=== PATIENT | male | born 1955 | race Caucasian/White ===

== ENCOUNTER 2018-06-12 21:03 | Outpatient (REF) | payer MEDICARE, MEDICAID, SELFPAY ==
[2018-06-12 22:21] LABS: Anion Gap 9.6 mmol/L (3-11); BUN 15 mg/dL (7-18); CO2 29.4 mmol/L (21.0-32.0); CREATININE 1.04 mg/dL (0.70-1.30); Chloride 99 mmol/L (98-107); Glucose 131 mg/dL (70-100); Potassium 4.3 mmol/L (3.5-5.1); Sodium 138 mmol/L (136-145)
== END 2018-06-12 21:23 ==
LOC: NCHCN 21:03
PROVIDERS: Visit Provider Family Medicine
DX: I10 Essential (primary) hypertension (principal)
CPT/HCPCS: 80048

== ENCOUNTER 2018-11-03 09:56 | Outpatient (REF) | payer MEDICARE, MEDICAID, SELFPAY ==
[2018-11-04 06:09] LABS: Abs Immature Grans 0.01 k/cumm (0.0-0.09); Absolute Basophil Count 0.03 k/cumm (0.0-0.2); Absolute Lymphocyte Count 2.29 k/cumm (1.2-3.4); Absolute Monocyte Count 0.75 k/cumm (0.11-0.7); Absolute Neutrophil Count 3.52 k/cumm (1.2-6.7); Basophils % 0.4; HCT 42.1 % (40.0-50.0); HGB 14.4 g/dL (13.5-17.5); Immature Grans % 0.1; Lymphocytes % 32.3; Mean Corp. HGB Concentration 34.2 g/dL (32.0-36.0); Mean Corpuscular Hemoglobin 29.9 pg (27.0-33.0); Mean Corpuscular Volume 87.3 fL (80-95); Mean Platelet Volume 11.6 fL (8.0-11.0); Monocytes % 10.6; Neutrophils % 49.6; Platelet Count 253 x1000/uL (130-400); RBC 4.82 m/cumm (4.50-6.00); RBC Distribution Width 12.6 % (11.8-14.1)
[2018-11-04 09:40] LABS: ALT 28 U/L (12-78); AST 16 U/L (15-37); Albumin 3.9 g/dL (3.4-5.0); Alkaline Phosphatase 90 U/L (46-116); Anion Gap 8.9 mmol/L (3-11); BUN 21 mg/dL (7-18); Bilirubin, Total 0.2 mg/dL (0.2-1.0); CO2 29.1 mmol/L (21.0-32.0); CREATININE 0.91 mg/dL (0.70-1.30); Calcium 9.1 mg/dL (8.5-10.1); Chloride 105 mmol/L (98-107); Glucose 103 mg/dL (70-100); Potassium 4.2 mmol/L (3.5-5.1); Sodium 143 mmol/L (136-145); TSH (W/Ref FT4) 1.96 uIU/mL (0.358-3.74); Vitamin B12 265 pg/mL (193-986)
== END 2018-11-03 10:16 ==
LOC: NCHCN 09:56
PROVIDERS: Visit Provider Nurse Practitioner Family
DX: F41.8 Other specified anxiety disorders (principal); F51.04 Psychophysiologic insomnia; R45.851 Suicidal ideations
CPT/HCPCS: 80053; 82607; 84443; 85025

== ENCOUNTER 2019-12-06 15:55 | Outpatient (REF) | payer MEDICARE, MEDICAID, SELFPAY ==
[2019-12-06 20:52] LABS: HCT 43.9 % (40.0-50.0); HGB 15.2 g/dL (13.5-17.5)
[2019-12-06 21:16] LABS: ALT 28 U/L (16-63); AST 19 U/L (15-37); Alkaline Phosphatase 86 U/L (46-116); Anion Gap 11.4 mmol/L (3-11); BUN 11 mg/dL (7-18); Bilirubin, Total 0.5 mg/dL (0.2-1.0); CO2 26.6 mmol/L (21.0-32.0); Calcium 9.2 mg/dL (8.5-10.1); Chloride 102 mmol/L (98-107); Glucose 92 mg/dL (74-106); Potassium 4.2 mmol/L (3.5-5.1); Sodium 140 mmol/L (136-145); Total Protein 7.3 g/dL (6.4-8.2)
== END 2019-12-06 16:15 ==
LOC: NCHCN 15:55
PROVIDERS: Visit Provider Nurse Practitioner Community Health
DX: K21.9 Gastro-esophageal reflux disease without esophagitis (principal)
CPT/HCPCS: 80053; 85014; 85018

== ENCOUNTER 2020-04-13 22:22 | Outpatient (REF) | payer MEDICARE, MEDICAID, SELFPAY ==
[2020-04-17 03:58] LABS: Patient Race White; SARS-CoV-2 RNA Undetected (Undetected); SARS-CoV-2 Specimen Source Nasal
== END 2020-04-13 22:42 ==
LOC: NCHCN 22:22
PROVIDERS: Visit Provider Family Medicine
DX: Z11.59 Encounter for screening for other viral diseases (principal)
CPT/HCPCS: U0003

== ENCOUNTER 2020-04-19 17:11 | Outpatient (REF) | payer MEDICARE, MEDICAID, SELFPAY ==
[2020-04-19 22:31] LABS: Abs Immature Grans 0.03 10^3/uL (0.0-0.06); Absolute Basophil Count 0.06 10^3/uL (0.0-0.2); Absolute Eosinophil Count 0.39 10^3/uL (0.0-0.7); Absolute Lymphocyte Count 2.45 10^3/uL (1.2-3.4); Absolute Monocyte Count 0.93 10^3/uL (0.1-0.8); Absolute Neutrophil Count 6.09 10^3/uL (1.2-6.7); Basophils % 0.6; Eosinophils % 3.9; HCT 43.7 % (40.0-50.0); HGB 14.6 g/dL (13.5-17.5); Immature Grans % 0.3; Lymphocytes % 24.6; MCH 29.2 pg (27.0-33.0); MCHC 33.4 % (32.0-36.0); MCV 87.4 fL (80-95); MPV 11.6 fL (8.0-11.0); Monocytes % 9.3; Neutrophils % 61.3; Nucleated RBC 0 %; Platelet Count 279 10^3/uL (130-400); RDW 12.9 % (11.8-14.1); RDW-SD 41.1 fL; WBC 9.95 10^3/uL (4.4-10.8)
[2020-04-21 10:07] LABS: Hepatitis C Ab w Rflx HCV PCR Reactive (Negative)
[2020-04-21 10:15] LABS: HIV-1/2 Ag & Ab Screen Negative (Negative)
[2020-04-24 14:26] LABS: HCV RNA Qualitative Undetected (Undetected)
== END 2020-04-19 17:31 ==
LOC: NCHCN 17:11
PROVIDERS: Visit Provider Nurse Practitioner Community Health
DX: Z11.4 Encounter for screening for human immunodeficiency virus [HIV] (principal); Z11.59 Encounter for screening for other viral diseases; B37.81 Candidal esophagitis; R63.4 Abnormal weight loss
CPT/HCPCS: 86803; 87389; 87522; 85025

== ENCOUNTER 2022-09-03 16:50 | Outpatient (REF) | payer MEDICARE, MEDICAID, SELFPAY ==
[2022-09-04 18:58] LABS: PSA, Screening 0.4 ng/mL (<=4.5)
[2022-09-09 12:30] LABS: Testosterone, Total 269 ng/dL (240-950)
== END 2022-09-03 16:51 | disposition home or self-care (01) ==
LOC: LBN 16:50
DX: Z87.438 Personal history of other diseases of male genital organs (principal); R53.83 Other fatigue; Z12.5 Encounter for screening for malignant neoplasm of prostate
CPT/HCPCS: 84153; 84403

== ENCOUNTER 2023-02-05 10:37 | Outpatient (REF) | payer MEDICARE, MEDICAID, SELFPAY ==
[2023-02-05 14:45] LABS: Abs Immature Grans 0.02 10^3/uL (0.0-0.06); Absolute Basophil Count 0.07 10^3/uL (0.0-0.2); Absolute Eosinophil Count 0.46 10^3/uL (0.0-0.7); Absolute Monocyte Count 0.65 10^3/uL (0.1-0.8); Absolute Neutrophil Count 3.99 10^3/uL (1.2-6.7); Eosinophils % 6.7; HCT 39.7 % (40.0-50.0); HGB 13.4 g/dL (13.5-17.5); Immature Grans % 0.3; Lymphocytes % 24.7; MCHC 33.8 % (32.0-36.0); MCV 89 fL (80-95); MPV 9.9 fL (8.0-11.0); Monocytes % 9.4; Neutrophils % 57.9; Platelet Count 369 10^3/uL (130-400); RBC 4.46 10^6/uL (4.36-5.78); RDW-SD 39.4 fL; WBC 6.89 10^3/uL (4.4-10.8)
[2023-02-05 15:31] LABS: ALT 24 U/L (16-63); AST 20 U/L (15-37); Albumin 3.4 g/dL (3.4-5.0); Alkaline Phosphatase 77 U/L (46-116); Anion Gap 7.6 mmol/L (3-11); BUN 11 mg/dL (7-18); Bilirubin, Total 0.3 mg/dL (0.2-1.0); CO2 28.4 mmol/L (21.0-32.0); CREATININE 0.9 mg/dL (0.70-1.30); Calcium 8.8 mg/dL (8.5-10.1); Chloride 106 mmol/L (98-107); Estimated GFR 93.03 (mL/min/1.73m2); Glucose 101 mg/dL (74-106); Sodium 142 mmol/L (136-145)
== END 2023-02-05 10:38 | disposition home or self-care (01) ==
LOC: NCHCN 10:37
PROVIDERS: Visit Provider Family Medicine
DX: R91.8 Other nonspecific abnormal finding of lung field (principal); R53.83 Other fatigue; R63.4 Abnormal weight loss
CPT/HCPCS: 80053; 85025

== ENCOUNTER 2025-05-30 16:23 | Outpatient (REF) | payer MEDICARE, MEDICAID, SELFPAY | END 2025-05-30 16:24 | disposition home or self-care (01) | LOC: NCHCN 16:23 | PROVIDERS: Visit Provider Family Medicine | DX: J47.9 Bronchiectasis, uncomplicated (principal); J44.1 Chronic obstructive pulmonary disease with (acute) exacerbation | CPT/HCPCS: 87070; 87205 ==